=== PATIENT | male | born 2000 | race Caucasian/White ===

== ENCOUNTER 2022-07-15 15:56 | Emergency (ER) | payer BC, SELFPAY ==
[2022-07-15 15:58] VITALS: BP 110/74; PULSE 136; RESP 18; TEMP 37.2; O2SAT 96; BMI 18.9
--- NOTE | 2022-07-15 17:03 | EX.ED.VIS.UR ---
HPI HPI - URI History of Present Illness Chief Complaint: Sore Throat Narrative Narrative: 21-year-old male diagnosed with mono about a week ago. Initially tested for strep and this was negative. This was done at the urgent care. Patient states that he does take Tylenol for his pain. He notes that his throat is a little bit more swollen. He states it hurts to swallow. He is able to tolerate his secretions but he states he has to think about it. He has been able to drink some fluids. He is not eating much food due to pain. He does report low-grade fevers at about 99. Initially had a fever of 101 but has not been this high again. No cough, body aches, chills. He is fatigued. He notes that the right side of his neck hurts worse than the left side. No abdominal pain, nausea, vomiting. No rashes. ROS ROS ED ROS Narrative Generalized fatigue Constitutional Constitutional ED: Reports chills and fever(s) Eyes Eyes: Denies change in vision or diplopia ENT ENT ED: Reports sore throat; Denies rhinorrhea Cardiovascular Cardiovascular: Denies chest pain Respiratory/Chest Respiratory/Chest: Denies cough or dyspnea Gastrointestinal Gastrointestinal: Denies abdominal pain, nausea or vomiting Genitourinary Genitourinary ED: Denies dysuria Musculoskeletal Musculoskeletal: Reports myalgias; Denies arthralgias Integumentary Denies abscess or Abrasions Neurologic Neurologic: Reports headache(s); Denies paresthesias or weakness PFSH PFSH Home Medications lidocaine HCl 2 % mucosal solution (Lidocaine Viscous) 1 applic mucous membrane TID PRN pain #100 mL 07/15/22 [Rx Last Taken Unknown] oxycodone 5 mg/5 mL oral solution 5 mg (5 mL) PO Q6H PRN pain 3 days #45 mL 07/15/22 [Rx Last Taken Unknown] Allergy/AdvReac Type Severity Reaction Status Date / Time No Known Allergies Allergy Verified 07/15/22 16:00 Social History Smoking Status: Never smoker EXAM Physical Exam Const Vital Signs: 07/15/22 15:58 07/15/22 17:07 Temperature 98.9 F Temperature Source Temporal Pulse Rate 136 H Respiratory Rate 18 Respiratory Pattern Normal Blood Pressure 110/74 Blood Pressure Mean 86 Pulse Ox 96 Oxygen Delivery Method Room Air Positive well nourished General Appearance ED: NAD; Negative for pallor HEENT Reports moist mucous membranes normocephalic and atraumatic Face and Sinus: normal facial exam, sinuses nontender and face symmetric Nose: external nose normal, nares normal and nasal mucous membranes and turbinates normal External Ear: external ears normal Tympanic Membrane ED: Yes TM's normal bilaterally Mouth ED: Yes lips normal, Yes tongue normal, Yes moist mucous membranes normal, Yes dysphonia, No drooling, Yes muffled voice and No restricted motion Mouth: lips normal, tongue normal, dysphonia, No drooling, muffled voice, No thrush and No restricted motion Throat: uvula midline and posterior oropharynx abnormal Positive for edema and exudates; Negative for peritonsillar mass Eyes PERRL Neck General: lymphadenopathy anterior cervical (Right greater than left) Resp normal respiratory effort Cardio Rate: tachycardic Neuro oriented x3 and CN's II-XII intact bilaterally Sensorium / Orientation: alert Motor Exam: strength 5/5 throughout Psych mental status grossly normal Skin General Skin Exam: Negative for jaundice or pallor MDM MDM MDM Narrative Medical decision making narrative: Patient presenting with sore throat after being diagnosed with mono. He does not have any stridor on exam but he does have a slight muffling of his voice. There is some tonsillar exudates in the back of his throat. He does have right greater than left lymphadenopathy. He did not tolerate his own secretions. He states he is having trouble swallowing secondary to pain. Patient was given 5 mg of p.o. viscous lidocaine and then this was followed by dexamethasone 10 mg p.o. patient feels much better after this. He states he swallowing better. He does report some pain so I did give him some oxycodone 5 mg for pain. He will be discharged home with oxycodone to help with his pain. He is already received dexamethasone. He will get some viscous lidocaine to help him. He is given follow-up with ENT if he has any issues. Return precautions discussed. Impression: 1. Mononucleosis Lab Data Attestation: I reviewed the patient's lab results. Discharge Plan Triage Chief Complaint: Sore Throat ED Provider: Mark Matthews Dx/Rx/DC Orders Instructions: ED Mononucleosis Prescriptions: New lidocaine HCl [Lidocaine Viscous] 2 % solution 1 applic mucous membrane TID PRN (Reason: pain) Qty: 100 0RF oxycodone 5 mg/5 mL solution 5 mg PO Q6H PRN (Reason: pain) 3 Days Qty: 45 0RF Primary Care Provider: Care Physician,No Primary Referrals: Dc Herzog MD [Med Staff - Active Staff] - 3-5 Days Care Physician,No Primary [Primary Care Provider] - Disposition Disposition: Home, Self Care
[2022-07-15] MEDS: dexAMETHasone 10 MG/ML Vial PO.IVFORM (17:04)
[2022-07-15] MEDS: oxyCODONE Soln 5 MG/0.25 ML PO.SYRINGE PO (19:43)
== END 2022-07-15 19:46 | disposition home or self-care (01) ==
PROVIDERS: Emergency Provider Student in an Organized Health Care Education/Training Program; Visit Provider Student in an Organized Health Care Education/Training Program
DX: B27.90 Infectious mononucleosis, unspecified without complication (principal)
CPT/HCPCS: 99283